=== PATIENT | male | born 1950 ===

== ENCOUNTER 2018-09-28 18:40 | Outpatient (CLI) | payer OTHER | END 2018-09-28 19:00 | disposition home or self-care (01) | LOC: LAB 18:40 | DX: R97.20 Elevated prostate specific antigen [PSA] (principal) ==

== ENCOUNTER 2018-10-20 07:21 | Outpatient (CLI) | payer OTHER | END 2018-10-20 07:30 | disposition home or self-care (01) | LOC: SONOGRAMA 07:21 | DX: D29.1 Benign neoplasm of prostate (principal); R97.20 Elevated prostate specific antigen [PSA] ==